=== PATIENT | female | born 1990 | race American Indian/Alaskan Native ===

== ENCOUNTER 2016-10-17 17:33 | Emergency (ER) | payer SELFPAY ==
[2016-10-17 17:44] VITALS: BP 149/98
[2016-10-17 18:07] LABS: Basophils % (Auto) 0.5 % (0.0-1.8); Eosinophils % (Auto) 2.2 % (0.0-4.3); Hematocrit 36.4 % (30.3-42.9); Hemoglobin 11.8 gm/dl (10.1-14.3); Mean Corpuscular HGB Conc 33 % (30-34); Mean Corpuscular Hemoglobin 27 pg (28-32); Mean Corpuscular Volume 83 fl (79-97); Platelet Count 309 K/mm3 (140-440); Red Blood Count 4.38 M/mm3 (3.65-5.03); Red Cell Distribution Width 13.2 % (13.2-15.2); White Blood Count 6.9 K/mm3 (4.5-11.0)
[2016-10-17 18:51] LABS: Bilirubin,Urine NEG (Negative); Blood,Urine LG (Negative); Ketones,Urine NEG (Negative); Leukocyte Esterase,Urine NEG (Negative); Mucus,Urine FEW /HPF; Nitrite,Urine NEG (Negative)
== END 2016-10-18 02:00 | disposition left against medical advice (07) ==
LOC: ED 17:33
DX: N93.9 Abnormal uterine and vaginal bleeding, unspecified (principal); Z53.21 Procedure and treatment not carried out due to patient leaving prior to being seen by health care provider
CPT/HCPCS: 36415; 81001; 84702; 85025; 86850; 86900; 86901

== ENCOUNTER 2016-10-18 17:17 | Emergency (ER) | payer BC ==
[2016-10-18 17:29] VITALS: BP 151/100
--- NOTE | 2016-10-18 17:48 | Emergency Department Report ---
Chief Complaint: Vaginal Bleeding Stated Complaint: PASSING BLOOD CLOTS Time Seen by Provider: 10/18/16 17:45 - HPI History of Present Illness: PT c/o vaginal bleeding since Tuesday. PT states she is passing large clots. PT is afraid she is having a miscarriage - ROS Review of Systems: + nausea + vaginal bleeding - Exam Vital Signs: Vital Signs 10/18/16 17:23 Temperature 98.6 F Pulse Rate 86 Respiratory 20 Rate Blood Pressure 151/100 O2 Sat by Pulse 100 Oximetry Physical Exam: pt looks well, non toxic. abd soft and not tender. MSE screening note: Focused history and physical exam performed. Due to findings the following was ordered: reviewed labs from yesterday. will repeat cbc and order pelvic us ED Disposition for MSE Condition: Stable
[2016-10-18 18:11] LABS: Basophils % (Auto) 0.4 % (0.0-1.8); Eosinophils % (Auto) 1.8 % (0.0-4.3); Hematocrit 36.7 % (30.3-42.9); Hemoglobin 11.8 gm/dl (10.1-14.3); Mean Corpuscular HGB Conc 32 % (30-34); Mean Corpuscular Hemoglobin 27 pg (28-32); Mean Corpuscular Volume 83 fl (79-97); Platelet Count 303 K/mm3 (140-440); Red Blood Count 4.44 M/mm3 (3.65-5.03); Red Cell Distribution Width 13.2 % (13.2-15.2); White Blood Count 7.6 K/mm3 (4.5-11.0)
[2016-10-18] MEDS ORDERED: NORCO 5/325 PO ONE (19:36)
--- NOTE | 2016-10-18 19:36 | Emergency Department Report ---
ED Female HPI - General Chief complaint: Vaginal Bleeding Stated complaint: PASSING BLOOD CLOTS Time Seen by Provider: 10/18/16 17:45 Source: patient Mode of arrival: Ambulatory Limitations: No Limitations - History of Present Illness Initial comments: Patient was seen in the ED yesterday for heavy vaginal bleeding, however she eloped before treatment was completed. She returns back to the ED for heavy vaginal bleeding with large clots that initially started three days ago. LMP 12/07 MD Complaint: vaginal bleeding, pelvic pain Onset/Timin -: days(s) Location: suprapubic, LLQ Radiation: L flank Severity: severe Severity scale (0 -10): 9 Quality: cramping Consistency: constant Improves with: none Worsens with: movement Are you Now?: No Last Menstrual Period: 09/30/16 EDC: 07/07/17 Associated Symptoms: vaginal bleeding, abdominal pain. denies: nausea/vomiting , fever/chills, headaches, loss of appetite, dysuria, hematuria, rash, seizure, shortness of breath, syncope, weakness - Related Data Sexually active: Yes : 1 Para: 0 A: 1 Previous Rx's Medication Instructions Recorded Last Taken Type medroxyPROGESTERone ACETATE 10 mg PO QDAY #10 tablet 10/18/16 Unknown Rx [Provera] Allergies Allergy/AdvReac Type Severity Reaction Status Date / Time morphine Allergy Itching Verified 10/17/16 17:43 ED Review of Systems ROS: Stated complaint: PASSING BLOOD CLOTS Other details as noted in HPI Constitutional: denies: chills, diaphoresis, fever, malaise, weakness Eyes: denies: eye pain ENT: denies: ear pain, throat pain Respiratory: denies: cough, orthopnea, shortness of breath, SOB with exertion, SOB at rest, stridor, wheezing Cardiovascular: denies: chest pain, palpitations, dyspnea on exertion, orthopnea Gastrointestinal: abdominal pain. denies: nausea, vomiting, diarrhea, constipation, hematemesis, melena, hematochezia Genitourinary: abnormal menses. denies: urgency, dysuria, frequency, hematuria , discharge Musculoskeletal: back pain. denies: joint swelling, arthralgia Skin: denies: rash, lesions, change in color, change in hair/nails, pruritus Neurological: denies: headache, weakness, numbness, paresthesias, confusion Psychiatric: denies: anxiety, depression Hematological/Lymphatic: denies: easy bleeding, easy bruising, swollen glands ED Past Medical Hx - Past Medical History Previous Medical History?: Yes Additional medical history: Uterine fibroids, Miscarriage x 1 Mar 04, 2016 - Surgical History Past Surgical History?: No - Social History Smoking Status: Never Smoker Substance Use Type: None - Medications Home Medications: Home Medications Medication Instructions Recorded Confirmed Last Taken Type medroxyPROGESTERone ACETATE 10 mg PO QDAY #10 tablet 10/18/16 Unknown Rx [Provera] ED Physical Exam - General Limitations: No Limitations General appearance: alert, in no apparent distress, obese - Head Head exam: Present: atraumatic - Eye Eye exam: Present: normal appearance - ENT ENT exam: Present: normal exam - Neck Neck exam: Present: normal inspection, full ROM. Absent: tenderness, meningismus, lymphadenopathy, thyromegaly - Respiratory Respiratory exam: Present: normal lung sounds bilaterally. Absent: respiratory distress, wheezes, rales, rhonchi, stridor, chest wall tenderness, accessory muscle use, decreased breath sounds, prolonged expiratory - Cardiovascular Cardiovascular Exam: Present: regular rate, normal rhythm, normal heart sounds. Absent: systolic murmur, diastolic murmur, rubs, gallop - GI/Abdominal GI/Abdominal exam: Present: soft, tenderness, normal bowel sounds. Absent: distended, guarding, rebound, rigid - Expanded GI/Abdominal Exam Expanded GI/Abdominal exam: Absent: psoas sign, obturator sign, heel tap sign, Henry's sign, Rovsing's sign, tenderness at [place]bur[place]'s Point, ascites - External exam: Present: bleeding. Absent: erythema, swelling, lesions, lacerations, ecchymosis Speculum exam: Present: vaginal bleeding. Absent: erythema, vaginal discharge, cervical discharge, foreign body, tissue, laceration Bi-manual exam: Present: normal bi-manual exam. Absent: cervical motion tendernes, adnexal tenderness, adnexal mass, uterine enlargement, uterine tenderness - Extremities Exam Extremities exam: Present: normal inspection, full ROM, normal capillary refill. Absent: tenderness, pedal edema, joint swelling - Back Exam Back exam: Present: normal inspection, full ROM, CVA tenderness (L). Absent: tenderness, CVA tenderness (R) - Neurological Exam Neurological exam: Present: alert, oriented X3, CN II-XII intact, normal gait, reflexes normal. Absent: motor sensory deficit - Psychiatric Psychiatric exam: Present: normal affect, normal mood. Absent: depressed, agitated - Skin Skin exam: Present: warm, dry, intact, normal color. Absent: rash ED Course Vital Signs 10/18/16 17:23 Temperature 98.6 F Pulse Rate 86 Respiratory 20 Rate Blood Pressure 151/100 O2 Sat by Pulse 100 Oximetry ED Medical Decision Making - Lab Data Result diagrams: 10/18/16 17:56 Microbiology 10/18/16 Unknown Wet Prep - Final Cervix No Yeast, Clue Cells or Trichomoniasis Seen Vital Signs 10/18/16 17:23 Temperature 98.6 F Pulse Rate 86 Respiratory 20 Rate Blood Pressure 151/100 O2 Sat by Pulse 100 Oximetry - Radiology Data Radiology results: image reviewed EXAM: US PELVIC COMPLETE HISTORY: passing clots TECHNIQUE: Transabdominal and transvaginal sonography of the pelvis. PRIORS: None. FINDINGS: The uterus measures 9.2 x 3.1 x 4.5 cm and appears grossly unremarkable. The endometrial stripe is within normal limits and measures 9 mm in AP dimension. The right ovary measures 2.6 x 1.7 x 1.9 cm and is grossly unremarkable. The left ovary measures 1.9 x 1.3 x 1.6 cm and is grossly unremarkable. Color Doppler shows appropriate blood flow present in the ovaries bilaterally. No adnexal masses. Minimal free fluid in pelvic cul-de-sac. IMPRESSION: 1. No acute findings. - Differential Diagnosis Dysfunctional Uterine Bleed, UTI, STI Critical care attestation.: If time is entered above; I have spent that time in minutes in the direct care of this critically ill patient, excluding procedure time. ED Disposition Clinical Impression: Dysfunctional uterine bleeding Disposition: DC-01 TO HOME OR SELFCARE Is pt being admited?: No Does the pt Need Aspirin: No Condition: Stable Instructions: Dysfunctional Uterine Bleeding (ED) Additional Instructions: Take medication as directed. Follow up with the selective referral given at discharge. Return back to the ED for worsening symptoms or concerns Prescriptions: medroxyPROGESTERone ACETATE [Provera] 10 mg PO QDAY #10 tablet Referrals: PRIMARY CARE, [Primary Care Provider] - 3-5 Days YASMANI BOWMAN CNM [Advanced Practice Nurse] - 3-5 Days ALEX COFFEY MD [Staff Physician] - 3-5 Days ONEIL SIMPSON MD [Staff Physician] - 3-5 Days Forms: Work/School Release Form(ED) Time of Disposition: 21:18
--- NOTE | 2016-10-18 20:59 | Ultrasound Report ---
FINAL REPORT EXAM: US PELVIC COMPLETE HISTORY: passing clots TECHNIQUE: Transabdominal and transvaginal sonography of the pelvis. PRIORS: None. FINDINGS: The uterus measures 9.2 x 3.1 x 4.5 cm and appears grossly unremarkable. The endometrial stripe is within normal limits and measures 9 mm in AP dimension. The right ovary measures 2.6 x 1.7 x 1.9 cm and is grossly unremarkable. The left ovary measures 1.9 x 1.3 x 1.6 cm and is grossly unremarkable. Color Doppler shows appropriate blood flow present in the ovaries bilaterally. No adnexal masses. Minimal free fluid in pelvic cul-de-sac. IMPRESSION: 1. No acute findings.
--- NOTE | 2016-10-18 21:00 | Ultrasound Report ---
FINAL REPORT EXAM: US TRANSVAGINAL HISTORY: passing clots TECHNIQUE: Transabdominal and transvaginal sonography of the pelvis. PRIORS: None. FINDINGS: The uterus measures 9.2 x 3.1 x 4.5 cm and appears grossly unremarkable. The endometrial stripe is within normal limits and measures 9 mm in AP dimension. The right ovary measures 2.6 x 1.7 x 1.9 cm and is grossly unremarkable. The left ovary measures 1.9 x 1.3 x 1.6 cm and is grossly unremarkable. Color Doppler shows appropriate blood flow present in the ovaries bilaterally. No adnexal masses. Minimal free fluid in pelvic cul-de-sac. IMPRESSION: 1. No acute findings.
== END 2016-10-18 23:05 | disposition home or self-care (01) ==
LOC: ED 17:17
DX: N93.8 Other specified abnormal uterine and vaginal bleeding (principal); Z88.5 Allergy status to narcotic agent
CPT/HCPCS: 36415; 76830; 76856; 85025; 87210; 87591